=== PATIENT | female | born 1985 | race Caucasian/White ===

== ENCOUNTER 2022-01-26 11:09 | Emergency (ER) | payer OTHER, SELFPAY ==
--- NOTE | ~2022-01-26 | US_ITS ---
EXAMINATION: US OB <=14 wk fetus w TV DATE: 01/26/2022 12:57 INDICATION: Vaginal bleeding during first trimester TECHNIQUE: Real-time pelvic transabdominal and transvaginal ultrasound was performed. COMPARISON: 01/18/2022 FINDINGS: The uterus measures 10.7 x 7.6 x 5.3 cm. There is a deformed gestational sac in the lower u terine segment. The pole is no longer identified. The right ovary is not visualized however no right adnexal abnormality is seen. The left ovary measures 1.3 x 1.1 x 1.7 cm. There is normal vascul ar flow in the left ovary. There is no free fluid in the pelvis. IMPRESSION: 1. Findings consistent with in progress. Reviewed, dictated and finalized at location A.
[2022-01-26 11:16] VITALS: BP 139/79; PULSE 79; RESP 14; TEMP 36.4; O2SAT 99
[2022-01-26 11:44] LABS: Basophils Absolute Auto 0.1 K/mm3 (0.0-0.1); Basophils Percent Auto 0.5 % (0.2-1.2); Eosinophils Absolute Auto 0.2 K/mm3 (0-0.3); Eosinophils Percent Auto 1.6 % (0-4.4); Hematocrit 37.7 % (37.0-47.0); Hemoglobin 12.4 g/dL (12.0-15.0); Immature Granulocyte Absolute 0.04 K/mm3 (0.00-0.031); Immature Granulocyte Percent A 0.4 % (0-0.5); Lymphocytes Absolute Auto 2.06 K/mm3 (0.9-3.2); Lymphocytes Percent Auto 22.4 % (18.3-44.2); Mean Corpuscular HGB Conc 32.9 g/dl (32-36); Mean Corpuscular Hemoglobin 30.1 pg (26-34); Mean Corpuscular Volume 91.5 fl (80-100); Mean Platelet Volume 9.8 fl (7.4-10.4); Monocytes Absolute Auto 0.6 K/mm3 (0.1-0.6); Monocytes Percent Auto 6.4 % (2.6-8.5); Neutrophils Absolute Auto 6.3 K/mm3 (1.3-6.7); Neutrophils Percent Auto 68.7 % (45.5-73.1); Platelet Count Result 281 k/mm3 (150-375); Red Blood Count 4.12 M/mm3 (4.2-5.4); Red Cell Distribution Width 12.3 % (11.5-14.5); White Blood Count 9.2 K/mm3 (4.5-10.0)
--- NOTE | 2022-01-26 11:54 | PC.NURSE ---
Patient reports she is approx 6 weeks , LMP 11/13/21. Reports she started with light spotting yesterday and today started heavy bleeding with clots. Patient denies any dizziness or lightheadedness. Patient is A&Ox4.
--- NOTE | 2022-01-26 12:26 | ED.GENADULT ---
HPI - General Adult General Chief complaint: Vaginal Bleeding Stated complaint: 6 wks preg vag bleed Time Seen by Provider: 01/26/22 11:53 History of Present Illness HPI narrative: 36-year-old female presenting to the emergency department for evaluation of vaginal bleeding. Patient is approximately 6 weeks . Patient is G4, P3 with 3 live births by vaginal delivery with no complications. Patient did have a follow-up with her INTAKE NURSE Dr. Soler and did have a transvaginal ultrasound approximately 2 weeks ago. No pulse was identified at that time. Patient began developing vaginal bleeding this morning. Patient states she has passed a large number of clots. Patient denies any associate abdominal pain or cramping. Related Data Home Medications Medication Instructions Recorded Confirmed folic acid 800 mcg tablet 0.8 mg PO DAILY 01/15/22 01/15/22 labetalol 100 mg tablet 100 mg PO DAILY 01/15/22 01/15/22 Allergies Allergy/AdvReac Type Severity Reaction Status Date / Time Penicillins Allergy Mild Hives Verified 01/26/22 15:55 Review of Systems Review of Systems: CONSTITUTIONAL: Denies fever, chills, or sweats. EYES: Denies visual changes, redness, or discharge. ENT: Denies rhinorrhea, congestion, sore throat, or otalgia. CARDIOVASCULAR: Denies chest pain, palpitations, or edema. RESPIRATORY: Denies cough or dyspnea. GASTROINTESTINAL: Denies abdominal pain, nausea, vomiting, or diarrhea. Vaginal bleeding GENITOURINARY: Denies dysuria or hematuria. SKIN: Denies rash or itching. MUSCULOSKELETAL: Denies back pain, joint pain, or myalgia. NEUROLOGIC: Denies headache, numbness, or weakness. [facility] Past Medical History Medical History (Updated 01/26/22 @ 19:12 by Omi Watson MD) Anxiety and depression Bipolar disorder COPD (chronic obstructive pulmonary disease) Suppression of menstruation Surgical History Surgical History (Updated 01/15/22 @ 10:24 by MAKI Gutierrez) H/O eye surgery Family History Family History (Updated 01/15/22 @ 10:25 by MAKI Gutierrez) Grandparent Diabetes mellitus Mother Breast cancer Father Hypertension Melanoma Social History Social History (Updated 01/15/22 @ 10:26 by MAKI Gutierrez) Smoking status: Never smoker Alcohol intake: never Substance use: never Additional living arrangements comments: separted Additional occupation/education comments: cashier wrapper Gender identity (if verbalized by the patient): Female Sexual Orientation (if Verbalized by the Patient): Straight or Heterosexual Exam Narrative: APPEARANCE: Well appearing, no pain, no distress, well-nourished. HEAD: normocephalic, atraumatic. EYES: PERRLA/EOMI, conjunctivae clear. NOSE: Normal no drainage THROAT: Pharynx clear, no exudate. NECK: Supple. No adenopathy, no masses. RESPIRATORY: Airway patent, respirations nonlabored. Clear to auscultation bilaterally, no rales, rhonchi, wheezing. CARDIOVASCULAR: Regular rate and rhythm without murmurs rubs or gallops. ABDOMINAL: Soft, nontender, nondistended, normal bowel sounds MUSCULOSKELETAL: Moves all extremities. Strength/ROM intact, No edema, No calf tenderness. NEURO: Alert. Cranial nerves II through XII intact. SKIN: Warm, dry. Normal Color Course Course Emergency Course: Patient blood type is A-. Patient was treated with RhoGAM. On pelvic exam patient had vaginal bleeding with no evidence of hemorrhage. Patient's vital signs are within normal limits. Patient's hemoglobin is stable. Case was discussed with INTAKE NURSE and patient will have outpatient follow-up. Patient was educated on reasons to return to the emergency department. All questions concerns were addressed. Vital Signs Vital signs: Vital Signs Temperature 97.6 F 01/26/22 11:16 Pulse Rate 79 01/26/22 11:16 Respiratory Rate 14 01/26/22 11:16 Blood Pressure 139/79 01/26/22 11:16 Pulse Oximetry 99 01/26/22 11:16 Oxygen Delivery
[2022-01-26] MEDS: RHO(D) IMMUNE GLOBULIN 300 MCG/2 ML SYRINGE IM (14:27)
--- NOTE | 2022-01-26 15:20 | PC.NURSE ---
To intake desk stating she didn't get her work note. Charge nurse notified.
--- NOTE | 2022-01-26 15:35 | PC.NURSE ---
While waiting for work note pt reports feeling faint and passing a clot from her vagina. Pt placed on couch to lay down in family service room. BP 100/60 P 80 R16 SPO2 99%. Pt declined to check back in and wishes to go home to lay down. Out of dept per wc.
== END 2022-01-26 14:58 | disposition home or self-care (01) ==
PROVIDERS: Emergency Medicine; Emergency Provider Emergency Medicine
DX: O20.0 Threatened abortion (principal); Z3A.01 Less than 8 weeks gestation of pregnancy; O99.511 Diseases of the respiratory system complicating pregnancy, first trimester; J44.9 Chronic obstructive pulmonary disease, unspecified
CPT/HCPCS: 36415; 76801; 76817; 84702; 85014; 85018; 85025; 85461; 90384; 93005; 96360; 96372; 99283; 99284; J2790; J7030

== ENCOUNTER 2022-01-26 15:42 | Emergency (ER) | payer OTHER, SELFPAY ==
[2022-01-26] VITALS (25 sets, daily range): BP systolic 102–127; BP diastolic 61–75; PULSE 70–108; RESP 10–23; TEMP 37.2; O2SAT 98–100
[2022-01-26] MEDS: SODIUM CHLORIDE 0.9% IV 1,000 ML 999 ML IV CONT (16:54)
[2022-01-26 16:56] LABS: Hematocrit 36.4 % (37.0-47.0); Hemoglobin 11.9 g/dL (12.0-15.0)
--- NOTE | 2022-01-26 17:29 | ED.GENADULT ---
HPI - General Adult General Chief complaint: Syncope Stated complaint: vag bleeding, syncope Time Seen by Provider: 01/26/22 16:39 History of Present Illness HPI narrative: 36-year-old female who was recently evaluated emergency department for evaluation of an ongoing miscarriage return to the emergency department after having a near syncopal episode. Patient states that while she was going home she had a near syncopal episode in the car. Patient's boyfriend brought her back to the emergency department. Patient states that she has had no worsening of her bleeding. Patient's vital signs are within normal limits. Patient has not had very much to eat or drink since she had been in the emergency department for the majority of the day. Patient is 6 weeks and had an ultrasound confirming a miscarriage in process. Patient was treated with RhoGAM and patient will have close follow-up with [employer]ACHINE OPERATOR. Related Data Home Medications Medication Instructions Recorded Confirmed folic acid 800 mcg tablet 0.8 mg PO DAILY 01/15/22 01/15/22 labetalol 100 mg tablet 100 mg PO DAILY 01/15/22 01/15/22 Allergies Allergy/AdvReac Type Severity Reaction Status Date / Time Penicillins Allergy Mild Hives Verified 01/26/22 15:55 Review of Systems Review of Systems: CONSTITUTIONAL: Denies fever, chills, or sweats. EYES: Denies visual changes, redness, or discharge. ENT: Denies rhinorrhea, congestion, sore throat, or otalgia. CARDIOVASCULAR: Denies chest pain, palpitations, or edema. RESPIRATORY: Denies cough or dyspnea. GASTROINTESTINAL: Denies abdominal pain, nausea, vomiting, or diarrhea. GENITOURINARY: Denies dysuria or hematuria. SKIN: Denies rash or itching. MUSCULOSKELETAL: Denies back pain, joint pain, or myalgia. NEUROLOGIC: Denies headache, numbness, or weakness. [facility] Past Medical History Medical History (Updated 01/27/22 @ 00:00 by Mayo Vides) Anxiety and depression Bipolar disorder COPD (chronic obstructive pulmonary disease) Suppression of menstruation Surgical History Surgical History (Updated 01/15/22 @ 10:24 by MAKI Gutierrez) H/O eye surgery Family History Family History (Updated 01/15/22 @ 10:25 by MAKI Gutierrez) Grandparent Diabetes mellitus Mother Breast cancer Father Hypertension Melanoma Social History Social History (Updated 01/15/22 @ 10:26 by Sofya Penny [facility]) Smoking status: Never smoker Alcohol intake: never Substance use: never Additional living arrangements comments: separted Additional occupation/education comments: asp net developer Gender identity (if verbalized by the patient): Female Sexual Orientation (if Verbalized by the Patient): Straight or Heterosexual Exam Narrative: APPEARANCE: Well appearing, no pain, no distress, well-nourished. HEAD: normocephalic, atraumatic. EYES: PERRLA/EOMI, conjunctivae clear. NOSE: Normal no drainage NECK: Supple. No adenopathy, no masses. RESPIRATORY: Airway patent, respirations nonlabored. Clear to auscultation bilaterally, no rales, rhonchi, wheezing. CARDIOVASCULAR: Regular rate and rhythm without murmurs rubs or gallops. ABDOMINAL: Soft, nontender, nondistended, normal bowel sounds MUSCULOSKELETAL: Moves all extremities. Strength/ROM intact, No edema, No calf tenderness. NEURO: Alert. Cranial nerves II through XII intact. Grossly intact SKIN: Warm, dry. Normal Color Course Course Emergency Course: Patient's hemoglobin is 11.9 this is not significantly changed compared to her earlier lab draw. Patient did feel improved with treatment. Patient's orthostatics were normal. Patient was comfortable with the plan for discharge and close follow-up. All question concerns were addressed. Patient states that the bleeding has almost completely resolved. Vital Signs Vital signs: Vital Signs Pulse Rate 84 01/26/22 15:50 Respiratory Rate 14 01/26/22 15:50 Pulse Oximetry 100 01/26/22 15:50 Te
--- NOTE | 2022-01-26 19:28 | ECG_ITS ---
Measurements Intervals [place] Rate: 72 P: 41 IA: 120 QRS: 73 QRSD: 97 T: 57 QT: 361 QTc: 396 Interpretive Statements SINUS RHYTHM WITH SINUS ARRHYTHMIA CANNOT RULE OUT INFERIOR INFARCTION AGE UNDETERMINED ABNORMAL ECG NO PREVIOUS ECG AVAILABLE FOR COMPARISON Electronically Signed On 01-27-2022 12:20:35 CDT by Erick Maki M.D.
== END 2022-01-26 20:19 | disposition home or self-care (01) ==
PROVIDERS: Emergency Provider Emergency Medicine
DX: R55 Syncope and collapse (principal); O03.9 Complete or unspecified spontaneous abortion without complication; J44.9 Chronic obstructive pulmonary disease, unspecified
CPT/HCPCS: 36415; 85014; 85018; 93005; 96360; 99283; J7030